=== PATIENT | female | born 1965 | race Hispanic/Latino ===

== ENCOUNTER 2019-08-12 06:34 | Outpatient (CLI) | payer OTHER ==
[2019-08-12 07:10] LABS: Basophils % (Auto) 0.9 % (0.0-1.8); Eosinophils # (Auto) 0.1 K/mm3 (0.0-0.4); Eosinophils % (Auto) 2.5 % (0.0-4.3); Hematocrit 34.8 % (30.3-42.9); Lymphocytes # (Auto) 2.1 K/mm3 (1.2-5.4); Lymphocytes % (Auto) 37.3 % (13.4-35.0); Mean Corpuscular HGB Conc 35 % (30-34); Mean Corpuscular Volume 88 fl (79-97); Monocytes # (Auto) 0.4 K/mm3 (0.0-0.8); Monocytes % (Auto) 6.3 % (0.0-7.3); Platelet Count 288 K/mm3 (140-440); Red Blood Count 3.97 M/mm3 (3.65-5.03); Red Cell Distribution Width 13.9 % (13.2-15.2)
[2019-08-12 07:20] LABS: Bilirubin,Urine NEG (Negative); Blood,Urine NEG (Negative); Color,Urine Yellow (Yellow); Mucus,Urine FEW /HPF; Protein,Urine <15 mg/dL mg/dL (Negative); Urobilinogen,Urine < 2.0 mg/dL (<2.0)
[2019-08-12 07:22] LABS: Creatinine,Urine 203.5 mg/dL (0.1-20.0)
[2019-08-12 07:39] LABS: Alanine Aminotransferase 32 units/L (7-56); Albumin 4.5 g/dL (3.9-5); BUN/Creatinine Ratio 23; Blood Urea Nitrogen 16 mg/dL (7-17); Hemolysis Index 3; LDL Cholesterol,Direct 145 mg/dL (50-130)
[2019-08-12 07:42] LABS: Microalbumin/Creatinine Ratio 5.8 ug/mg
[2019-08-12 09:27] LABS: Chol/HDL Ratio 4.57 %; HDL Cholesterol 45 mg/dL (40-59)
== END 2019-08-12 06:35 | disposition home or self-care (01) ==
LOC: LAB 06:34
PROVIDERS: ATTEND Internal Medicine
DX: Z00.00 Encounter for general adult medical examination without abnormal findings (principal); E11.65 Type 2 diabetes mellitus with hyperglycemia; Z13.220 Encounter for screening for lipoid disorders; Z13.29 Encounter for screening for other suspected endocrine disorder; Z13.21 Encounter for screening for nutritional disorder; N39.0 Urinary tract infection, site not specified
CPT/HCPCS: 36415; 80053; 80061; 81001; 82043; 82306; 82607; 83036; 84443; 85025

== ENCOUNTER 2019-08-19 12:57 | Outpatient (CLI) | payer OTHER ==
--- NOTE | 2019-08-19 15:54 | Mammography Report ---
DIGITAL SCREENING MAMMOGRAM WITH CAD, 08/19/2019 INDICATION: Routine screening mammography. TECHNIQUE: Digital bilateral 2D mammography was obtained in the craniocaudal and mediolateral obliq ue projections. This examination was interpreted with the benefit of Computer-Aided Detection analysi s. COMPARISON: None available. However, she indicated that she had a prior mammogram in [facility] FINDINGS: Breast Density: The breasts are almost entirely fatty. A left asymmetry on the MLO view requires comparison with the prior mammogram or additional imaging. No architectural distortion or suspicious calcifications of the left breast. There is no evidence of dominant mass, suspicious calcifications or architectural distortion in the right breast. IMPRESSION: Comparison with a previous mammogram is recommended. We will attempt to obtain a prior ma mmogram for comparison. If we do not obtain a prior mammogram within 30 days, a revised report will b e issued recommending a recall for additional imaging. Please be advised that the patient should not schedule an appointment for return until adequate time (at least 2 weeks) has passed for us to obtain the prior mammogram. Follow up recommendation: Obtain prior study for comparison Category 0: Incomplete. Needs additional imaging evaluation and/or prior mammograms for comparison. A "normal" or negative report should not discourage follow up or biopsy of a clinically significant f inding. A written summary of these findings will be mailed to the patient. The patient will be entered into a mammography reporting system which will generate a reminder letter for the patient's next appointmen t at the appropriate interval. The [employer] recommends yearly mammograms starting at age 40 and continuing as l lena as a woman is in good health. Breast MRI is recommended for women with an approximate 20-25% or greater lifetime risk of breast cancer, including women with a strong family history of breast or ova justino cancer or who have been treated for Hodgkin's disease. Signer Name: Francisco J Mitchell MD Signed: 08/19/2019 3:50 PM Workstation Name: [id number]
== END 2019-08-19 12:58 | disposition home or self-care (01) ==
LOC: MAMMO 12:57
PROVIDERS: ATTEND Internal Medicine
DX: Z12.31 Encounter for screening mammogram for malignant neoplasm of breast (principal); N64.89 Other specified disorders of breast
CPT/HCPCS: 77067

== ENCOUNTER 2019-11-22 13:03 | Outpatient (CLI) | payer OTHER ==
--- NOTE | 2019-11-22 15:04 | XRay Report ---
RIGHT HIP 2 VIEWS INDICATION / CLINICAL INFORMATION: PAIN IN RIGHT HIP COMPARISON: None available. FINDINGS: BONES / JOINT(S): No acute fracture or subluxation. No significant arthritis. SOFT TISSUES: No significant abnormality. ADDITIONAL FINDINGS: None. Signer Name: Eduardo Garcia MD Signed: 11/22/2019 2:59 PM Workstation Name: [id number]
== END 2019-11-22 13:04 | disposition home or self-care (01) ==
LOC: XRAY 13:03
PROVIDERS: ATTEND Orthopaedic Surgery
DX: M25.551 Pain in right hip (principal)

== ENCOUNTER 2020-09-21 06:14 | Outpatient (CLI) | payer OTHER ==
[2020-09-21 07:23] LABS: Basophils # (Auto) 0.1 K/mm3 (0.0-0.1); Basophils % (Auto) 1.1 % (0.0-1.8); Eosinophils # (Auto) 0.1 K/mm3 (0.0-0.4); Eosinophils % (Auto) 1.1 % (0.0-4.3); Hematocrit 38.1 % (30.3-42.9); Hemoglobin 12.7 gm/dl (10.1-14.3); Lymphocytes # (Auto) 2.7 K/mm3 (1.2-5.4); Lymphocytes % (Auto) 41.4 % (13.4-35.0); Mean Corpuscular HGB Conc 33 % (30-34); Mean Corpuscular Volume 88 fl (79-97); Monocytes # (Auto) 0.4 K/mm3 (0.0-0.8); Monocytes % (Auto) 6.4 % (0.0-7.3); Platelet Count 286 K/mm3 (140-440); Red Blood Count 4.32 M/mm3 (3.65-5.03); Red Cell Distribution Width 13.2 % (13.2-15.2)
[2020-09-21 07:39] LABS: Alanine Aminotransferase 51 units/L (7-56); Albumin 4.5 g/dL (3.9-5); Blood Urea Nitrogen 13 mg/dL (7-17); Calcium 9.7 mg/dL (8.4-10.2); Chol/HDL Ratio 3.63 %; HDL Cholesterol 57 mg/dL (40-59); Hemolysis Index 3; LDL Cholesterol,Direct 148 mg/dL (50-130)
[2020-09-21 08:39] LABS: BUN/Creatinine Ratio 19
== END 2020-09-21 06:15 | disposition home or self-care (01) ==
LOC: LAB 06:14
PROVIDERS: ATTEND Internal Medicine
DX: Z00.00 Encounter for general adult medical examination without abnormal findings (principal); Z13.29 Encounter for screening for other suspected endocrine disorder; E78.5 Hyperlipidemia, unspecified; E11.65 Type 2 diabetes mellitus with hyperglycemia; R20.2 Paresthesia of skin; E55.9 Vitamin D deficiency, unspecified
CPT/HCPCS: 36415; 80053; 80061; 82306; 82607; 83036; 84443; 85025

== ENCOUNTER 2021-03-25 12:29 | Outpatient (CLI) | payer OTHER ==
[2021-03-25 18:03] LABS: Bilirubin,Urine NEG (Negative); Blood,Urine NEG (Negative); Color,Urine Straw (Yellow); Protein,Urine <15 mg/dL mg/dL (Negative); Urobilinogen,Urine < 2.0 mg/dL (<2.0); WBC,Urine < 1.0 /HPF (0.0-6.0)
== END 2021-03-25 12:30 | disposition home or self-care (01) ==
LOC: LAB 12:29
PROVIDERS: ATTEND Internal Medicine
DX: N39.0 Urinary tract infection, site not specified (principal)
CPT/HCPCS: 81001

== ENCOUNTER 2021-04-14 10:57 | Outpatient (CLI) | payer OTHER ==
[2021-04-14 11:42] LABS: Chol/HDL Ratio 5.32 %
--- NOTE | 2021-04-14 15:45 | Mammography Report ---
DIGITAL SCREENING MAMMOGRAM WITH CAD, 04/14/2021 CLINICAL INFORMATION / INDICATION: Routine screening mammography. SCREENING MAMMOGRAM TECHNIQUE: Digital bilateral 2D mammography was obtained in the craniocaudal and mediolateral obliqu e projections. This examination was interpreted with the benefit of Computer-Aided Detection analysis . COMPARISON: 08/19/2019 FINDINGS: Breast Density: The breasts are almost entirely fatty. No dominant mass, suspicious calcifications, or architectural distortion in either breast. Density seen in the superior left breast on the prior mammogram has improved and is less apparent on today's study. Minimal nodularity bilaterally is unchanged. IMPRESSION: No mammographic evidence of malignancy. Follow up recommendation: Routine yearly BI-RADS Category 2: Benign. A "normal" or negative report should not discourage follow up or biopsy of a clinically significant f inding. A written summary of these findings will be mailed to the patient. The patient will be entered into a mammography reporting system which will generate a reminder letter for the patient's next appointmen t at the appropriate interval. The [employer] recommends yearly mammograms starting at age 40 and continuing as l lena as a woman is in good health. Breast MRI is recommended for women with an approximate 20-25% or greater lifetime risk of breast cancer, including women with a strong family history of breast or ova justino cancer or who have been treated for Hodgkin's disease. Signer Name: Eduardo Garcia MD Signed: 04/14/2021 3:41 PM Workstation Name: [id number]
== END 2021-04-14 10:58 | disposition home or self-care (01) ==
LOC: MAMMO 10:57
PROVIDERS: ATTEND Internal Medicine
DX: Z12.31 Encounter for screening mammogram for malignant neoplasm of breast (principal); E11.65 Type 2 diabetes mellitus with hyperglycemia; E78.5 Hyperlipidemia, unspecified; E55.9 Vitamin D deficiency, unspecified; N64.89 Other specified disorders of breast
CPT/HCPCS: 36415; 77067; 80061; 82306; 83036